=== PATIENT | male | born 1995 | race Caucasian/White ===

== ENCOUNTER 2021-09-03 18:56 | Emergency (ER) | payer OTHER ==
[~2021-09-03] VITALS: Ht 175.3 cm; Wt 79.4 kg
== END 2021-09-03 20:37 | disposition home or self-care (01) ==
LOC: ER 18:56
DX: S00.83XA Contusion of other part of head, initial encounter (principal); V49.9XXA Car occupant (driver) (passenger) injured in unspecified traffic accident, initial encounter; Y93.9 Activity, unspecified; Y92.488 Other paved roadways as the place of occurrence of the external cause